=== PATIENT | female | born 2000 | race Caucasian/White ===

== ENCOUNTER 2023-07-07 10:03 | Emergency (ER) | payer OTHER ==
[2023-07-07 10:09] VITALS: BP 108/70; PULSE 80; RESP 18; TEMP 98.5; BMI 27.9
[2023-07-07] MEDS ORDERED: ACETAMINOPHEN INJECTION 100 ML IVPB ONE (11:15)
[2023-07-07] MEDS ORDERED: METOCLOPRAMIDE HCL INJECTION 10 MG/2 ML VIAL ONE (11:15)
[2023-07-07 11:38] LABS: URINE APPEARANCE CLEAR; URINE BILIRUBIN NEGATIVE (NEGATIVE); URINE COLOR YELLOW; URINE GLUCOSE (UA) NEGATIVE (NEGATIVE); URINE KETONE NEGATIVE (NEGATIVE); URINE LEUK ESTERASE NEGATIVE (NEGATIVE); URINE NITRITE NEGATIVE (NEGATIVE); URINE PROTEIN NEGATIVE (NEGATIVE)
[2023-07-07] MEDS: SODIUM CHLORIDE 0.9% 500 ML INFUS.BAG IV ONE (11:40)
[2023-07-07] MEDS: METOCLOPRAMIDE HCL INJECTION 10 MG/2 ML VIAL IVPUSH ONE (11:41)
[2023-07-07] MEDS: ACETAMINOPHEN 1000 MG/100 ML BAG IVPB ONE (12:00)
[2023-07-07 12:02] LABS: BASO % 0.5 % (0-2.0); EOS % 1.1 % (0-4.5); HEMATOCRIT 38.9 % (32.4-45.2); HEMOGLOBIN 13.3 GM/dL (10.7-15.3); LYMPH % 28.3 % (8-40); MCH 30.9 pg (25.7-33.7); MCHC 34.3 g/dl (32.0-36.0); MEAN PLT VOLUME 8.7 fl (7.5-11.1); MONO % 6.5 % (3.8-10.2); NEUT % 63.6 % (42.8-82.8); PLATELET COUNT 246 10^3/uL (134-434); RBC 4.32 M/mm3 (3.60-5.2); RDW 14.1 % (11.6-15.6); WHITE BLOOD COUNT 6.6 K/mm3 (4.0-10.0)
[2023-07-07 12:25] LABS: POTASSIUM 4.2 mmol/L (3.5-5.1)
[2023-07-07 12:29] LABS: ALBUMIN 3.3 g/dl (3.4-5.0); BLOOD UREA NITROGEN 8.4 mg/dL (7-18); CALCIUM 9.4 mg/dL (8.5-10.1)
[2023-07-07 12:32] LABS: CREATININE 0.9 mg/dL (0.55-1.3)
[2023-07-07 12:34] LABS: BILIRUBIN,TOTAL 0.5 mg/dL (0.2-1); TOT PROT 6.9 g/dl (6.4-8.2)
== END 2023-07-07 13:59 | disposition home or self-care (01) ==
LOC: JER 10:03
PROC: 3E033NZ Introduction of Analgesics, Hypnotics, Sedatives into Peripheral Vein, Percutaneous Approach (ICD-10-PCS; principal; 2023-07-07)
PROC: 3E033GC Introduction of Other Therapeutic Substance into Peripheral Vein, Percutaneous Approach (ICD-10-PCS; 2023-07-07)
DX: R51.9 Headache, unspecified (principal); H53.8 Other visual disturbances; B34.9 Viral infection, unspecified; Z20.822 Contact with and (suspected) exposure to COVID-19
CPT/HCPCS: 0241U-QW; 36415; 71046-TC-FY; 80053; 81003; 84703; 85025; 86140; 87040; 87086; 96374; 96375; 99284-25; J0131